=== PATIENT | male | born 1935 ===

== ENCOUNTER 2016-10-25 11:43 | Observation (INO) ==
[2016-10-25 12:23] LABS: Basophils % 0.6 % (0.0-0.8); Eosinophils # 0.2 10*3/uL (0.0-0.87); Eosinophils % 3.3 % (0.00-10.9); Hematocrit 46.2 VOL% (42.0-52.0); Hemoglobin 16.3 GM/DL (14.0-18.0); Immature Granulocytes % 0.3 %; Immature Granulocytes Absolute 0.02 #; Lymphocytes # 1.3 10*3/uL (1.4-4.0); Lymphocytes % 19.4 % (21.2-54.2); Mean Corpuscular HGB Conc 35.3 GM/DL (32-36); Mean Corpuscular Hemoglobin 30 PG (27-34); Mean Corpuscular Volume 86.2 FL (87-102); Mean Platelet Volume 11.4 FL (9.6-12.0); Monocytes # 0.7 10*3/uL (0.11-0.8); Monocytes % 10.4 % (1.7-12.7); Neutrophils # 4.4 10*3/uL (1.4-7.4); Platelet Count 136 T/CUMM (130-400); Red Blood Count 5.36 MC/CUMM (3.8-5.5); Red Cell Distribution Width 13.1 % (9.3-17.3); White Blood Count 6.7 T/CUMM (4-12)
--- NOTE | 2016-10-25 12:25 | XRay Report ---
Chest, 2 views History atrial fibrillation The heart is normal in size Vague symmetric nipple shadows present. No congestive failure or confluent infiltrate is seen. Impression: No acute pathology seen PROCEDURE INTERPRETED AT [facility] DEPARTMENT OF RADIOLOGY Final Report Signed by: Dr. Jennifer Woody
[2016-10-25 12:27] LABS: PT Patient Result 10.7 SECS; Partial Thromboplastin Time 27.9 SECS (0-40)
--- NOTE | 2016-10-25 12:36 | Emergency Department Note ---
Jane Mario Mantricia, am scribing for, and in the presence of, Quincy De La Rosa MD 12:16. Estrella Mario James D, MD, personally performed the services described in this documentation, ascribed by Camilla Lara in my presence, and it is both accurate and complete . Arrival - Arrival Chief Complaint: Arrhythmia/Palpitations Stated Complaint: heart.. afib ED Nursing Triage Note: sent from Dr Loza office with heart racing - pt states that he has been seen in the past for elevated heart rate - pt denies chest pain Mode of Arrival: Ambulatory Limitations: No Limitations Source: Patient Time Seen by Provider: 10/25/16 12:00 - History of Present Illness HPI Narrative: Pt is a 80 y/o white male arriving to ED with c/o heart palpitations that onset 4 days ago. Pt was sent here from Dr. Loza for further evaluation. He states that he was told to come by EMS so he thought that he would be seeing a make up editor. Pt states that his heart beat is usually slow. At time of exam, pt 's heart rate is 94. He was prescribed Lisinopril by Dr. Gan but has not been able to follow-up with him because he has retired. He denies any blood thinners or OTC medications. Pt does not have a PMHx of thyroid problems and he his is not having any chest pain at time of exam. No other complaints were reported to ED. Onset (ago): hour(s) Consistency: constant Severity: mild Allergies/Adverse Reactions: Allergies Allergy/AdvReac Type Severity Reaction Status Date / Time No Known Allergies Allergy Verified 10/25/16 12:00 Home Medications: Home Medications Medication Instructions Recorded Confirmed Type Lisinopril 20 mg PO DAILY 10/25/16 10/25/16 History Tamsulosin [Flomax] 0.4 mg PO DAILY 10/25/16 10/25/16 History amLODIPine [Norvasc] 5 mg PO DAILY 10/25/16 10/25/16 History Review of System - Review of System 12 point system: reviewed and no additional remarkable complaints except as stated - Review of System Constitutional: Absent: chills, diaphoresis, fever Respiratory: Absent: cough Cardiovascular: Present: palpitations. Absent: chest pain, dyspnea on exertion Gastrointestinal: Absent: abdominal pain, nausea, vomiting Musculoskeletal: Absent: arm pain, back pain, leg pain, neck pain Medical,Surgical,& Family Hx - Medical History Cardio: History of: Hypertension, Cardiovascular Problems (? irregular heart rate) - Social History Smoking Status: Never smoker Frequency of Alcohol Use: None Type of Drug Use: None Exam Physical Examination: ADULT: GENERAL: This is a well-nourished, well-developed white male in no apparent distress. VITAL SIGNS: Reviewed HEENT: Head is normocephalic and atraumatic. Pupils are equally round and reactive to light. Extraocular movement are intact. Oropharynx is benign with moist mucous membranes. NECK: Neck is soft and supple without tenderness. There are no masses. There is no lymphadenopathy. LUNGS: Lungs are clear to auscultation bilaterally. Chest rises symmetrically. There is no chest wall tenderness. CV: Heart is irregularly irregular without murmurs, rubs, or gallops. ABDOMEN: Abdomen is soft, non-tender to palpation. There are no abnormal masses palpated. There is no organomegaly. Bowel sounds are present and active. SKIN: Skin is warm and dry. No rash. EXTREMITIES: Patient has full range of motion without tenderness. There is no pedal edema. NEUROLOGIC: Awake, alert, and oriented x4. Cranial nerves II through XII are grossly intact. There are no motorsensory deficits. PSYCHIATRIC: Normal affect. Normal mood. Vital Signs: Vital Signs Temperature 98.1 F 10/25/16 11:59 Pulse Rate 91 H 10/25/16 12:12 Respiratory Rate 17 10/25/16 12:12 Blood Pressure 133/100 10/25/16 12:12 O2 Sat by Pulse Oximetry 98 10/25/16 12:12 Course Course Narrative: CHADS2 score is 2 out of 6. - Consultations Consultation #1: Discussed with Dr. Pulido. He will see the patient in the emergency department. Results - Labs Lab Results: I have reviewed the patients labs - EKG EKG results: interpreted by MAURICED - Impressions EKG: Atrial fib with rate of 91, left axis deviation, normal ST-T waves. Disposition Clinical Impression: Atrial fibrillation, Essential hypertension Case discussed with: patient, patient's family Condition: Stable Time of Disposition: 12:24
[2016-10-25 12:50] LABS: Albumin 3.6 G/DL (3.4-5.0); Bilirubin,Total 1.8 MG/DL (0.2-1.0); Calcium 9.6 MG/DL (8.5-10.1); Osmolality,Calculated 281.4 MOS/KG (273-304); Potassium 3.9 MMOL/L (3.5-5.1); Thyroid Stimulating Hormone 1.51 uIU/ml (0.358-3.74)
[2016-10-25 12:51] LABS: Troponin I Only 0.071 NG/ML (0.00-0.045)
[2016-10-25] MEDS ORDERED: ASPIRIN 325 MG TABLET PO STA (12:59)
[2016-10-25] MEDS ORDERED: ENOXAPARIN 80 MG/0.8 ML SYRINGE SUBCUT STA (12:59)
[2016-10-25] MEDS ORDERED: ENOXAPARIN 80 MG/0.8 ML SYRINGE SUBCUT ONE (13:02)
[2016-10-25] MEDS ORDERED: ASPIRIN 325 MG TABLET ONE (13:02)
[2016-10-25 13:38] LABS: Risk Ratio 3.27; VLDL CHOLESTEROL 20.2 MG/DL
[2016-10-25] MEDS ORDERED: ACETAMINOPHEN 325 MG TABLET PO PRN (13:46)
[2016-10-25] MEDS ORDERED: MAGNESIUM SULF RIDER 4 GM in PREMIX 1 EACH IV PRN (13:46)
[2016-10-25] MEDS ORDERED: DOCUSATE SODIUM 100 MG CAPSULE PO PRN (13:46)
[2016-10-25] MEDS ORDERED: ZALEPLON 5 MG CAPSULE PO PRN (13:46)
[2016-10-25] MEDS ORDERED: MAGNESIUM SULF RIDER 2 GM in PREMIX 1 EACH IV PRN (13:46)
[2016-10-25] MEDS ORDERED: ONDANSETRON 4 MG/2 ML VIAL IV PRN (13:46)
[2016-10-25] MEDS ORDERED: POTASSIUM CHLORIDE 20 MEQ TABLET PO PRN (13:46)
--- NOTE | 2016-10-25 14:10 | Cardiology History & Physical ---
<Radha Sung E - Last Filed: 10/25/16 13:51> Assessment and Plan - Time spent with patient Time spent with patient: Greater than 30 minutes (1) Chest pain Status: Acute Assessment and plan: SEE PLAN OF CARE LISTED BELOW Current Visit: Yes (2) Thyroid enlargement Status: Acute Assessment and plan: SEE PLAN OF CARE LISTED BELOW Current Visit: Yes (3) Elevated troponin Status: Acute Assessment and plan: SEE PLAN OF CARE LISTED BELOW Current Visit: Yes (4) Elevated bilirubin Status: Acute Assessment and plan: SEE PLAN OF CARE LISTED BELOW Current Visit: Yes (5) Atrial fibrillation Status: Acute Assessment and plan: SEE PLAN OF CARE LISTED BELOW Current Visit: Yes (6) Essential hypertension Status: Acute Assessment and plan: SEE PLAN OF CARE LISTED BELOW Current Visit: Yes History of Present Illness Chief complaint: chest pain, atrial fib History of present illness: 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 VAZQUEZ Patient is being seen in the emergency department of [facility]. Mr. Gonsalez, 80WM, who was previously followed by Dr. Gan for SVT. Risk factors include: Age, hypertension. History of colon cancer 1990s, in remission. Patient presented to Dr. Loza's office today after experiencing palpitations and chest discomfort intermittently since Sunday evening. He was found to be in atrial fibrillation, transferred to our facility for further workup. Sunday evening, while staying at a friend's house, he was required to walk the stairs in a 3 level home. While traversing the second set of stairs, patient began to experience chest pounding, chest discomfort located in the left chest area without radiation. This lasted approximately 5-10 minutes and improved with rest. No nausea, vomiting or diaphoresis associated. Rates discomfort discomfort as a 7 on a scale of 1-10, currently chest pain-free. Patient is adamant it is not chest pain but there is "something in the left chest area" which has been occurring with exertion and now at rest. It was occurring upon arrival to the ED but not at present. It is not reproducible to palpation or movement. Normally, Mr. Gonsalez is a very active gentleman. He works outside aggressively but is found over the past 2-3 weeks he has had more fatigue than usual. No real shortness of breath but fatigue with exertion. Father had myocardial infarction and at age 76. Patient does acknowledge that he has felt his heart fluttering and/or "skipping beats" over the past 4 days as well. He was previously followed by Dr. Gan for SVT but has never been diagnosed with atrial fibrillation. He has never had a stroke. He reports his heart rate is usually in the high 50s and low 60s and was concerned when his heart rate was in the high 90s today with a systolic blood pressure of 90s. Troponin has returned 0.07, EKG reveals atrial fibrillation. He has been given Aspirin and 1 dose of full strength Lovenox, nitrates. Blood pressure will not allow for introduction of betablocker. He is agreeable for admission overnight to rule out and evaluate other cardiac conditions. Patient may need stress test versus cardiac catheterization depending on his evolution. We will continue to cycle his cardiac biomarkers, EKG. CHADVASC SCORE 4. He has no contraindication to taking blood thinner. Echocardiogram has been ordered. TSH pending. Of note, bilirubin is elevated. Will add lipase and amylase, hepatitis panel, PPI. I will further discuss with Dr. Vazquez and await additional recommendations. ASSESSMENT/PLAN: 1. CHEST PAIN -continue cycle cardiac biomarkers, EKG, PPI. 2. ATRIAL FIBRILLATION (NEW ONSET) - rate controlled. Patient will need anticoagulation at discharge. 3. HYPERTENSION -usually well controlled on Lisinopril and Amlodipine. Prior history of reported low heart rates therefore avoiding beta blockers at this time. 4. ELEVATED BILIRUBIN - hepatitis panel, amylase, lipase. May benefit from right upper quadrant ultrasound. 5. BILOBULAR ENLARGEMENT OF THYROID - US thyroid. 6. ELEVATED TROPONIN - cyclie CIEs, EKG Home Medications Medication Instructions Recorded Confirmed Type Lisinopril 20 mg PO DAILY 10/25/16 10/25/16 History Tamsulosin [Flomax] 0.4 mg PO DAILY 10/25/16 10/25/16 History amLODIPine [Norvasc] 5 mg PO DAILY 10/25/16 10/25/16 History Allergies Allergy/AdvReac Type Severity Reaction Status Date / Time No Known Allergies Allergy Verified 10/25/16 12:00 Review of systems: REVIEW OF SYSTEMS: - Constitutional Constitutional: Present: Fatigue. Absent: syncope, anorexia, night sweats - EENT Eyes: Absent: blurry vision, loss of vision, diplopia Ears: Absent: decreased hearing, ear pain, ear discharge - Cardiovascular Cardiovascular: Present: chest pain with exertion, palpitations. Denies dyspnea on exertion, edema, palpitations. Absent: chest pain with deep breath, claudication - Respiratory Respiratory: Denies KAPLAN, cough. Absent: wheezing, hemoptysis, change in phlegm color - Gastrointestinal Gastrointestinal: Denies constipation. Frequent diarrhea since having the majority of his colon removed in 1996. Denies abdominal pain, hematemesis, hematochezia, melena, change in bowel habits, nausea - Genitourinary Genitourinary: Absent: difficulty urinating, dysuria, urinary hesitancy, flank pain - Musculoskeletal Musculoskeletal: Present: back pain Absent: joint swelling, muscle cramps, muscle weakness - Neurological Neurological: Present: normal gait without frequent falls. Absent: dizziness, hemiparesis - Psychiatric Psychiatric: Absent: anxiety, depression, difficulty concentrating - Endocrine Endocrine: Absent: cold intolerance, heat intolerance, polyuria, polyphagia, polydipsia - Hematologic/Lymphatic Hematologic/Lymphatic: Present: easy bruising, easy bleeding. -Integumentary Integumentary: Absent: lesions, rashes, skin breakdown Medical,Surgical,& Family Hx - Medical History Cardio: History of: Hypertension, Cardiovascular Problems (SVT) Endocrine: No history of: Diabetes Mellitus (NIDDM) - Social History Smoking Status: Never smoker Have you smoked in the last 12 months: No Frequency of Alcohol Use: None Type of Drug Use: None Marital Status: Lives With:: Spouse Functional capacity: independent ambulation Cardiology Physical Exam - Constitutional Vitals: Vital Signs Temp Pulse Resp BP Pulse Ox 98.1 F 85 12 125/96 98 10/25/16 11:59 10/25/16 12:45 10/25/16 12:45 10/25/16 12:45 10/25/16 12:45 Intake and Output 10/24/16 10/25/16 10/25/16 23:59 07:59 15:59 Other: Weight 81.647 kg Patient Weight 10/25/16 23:59 Weight 81.647 kg Exam: General: [Appears well with no apparent distress.] [Pleasant and cooperative. ] [Appears comfortable.] HEENT: [PERRL, normocephalic, atraumatic. Mucous membranes moist. No jaundice noted. Conjunctiva moist and clear, sclerae anicteric] Neck: No JVD/HJR. Bilobar enlargement of thyroid. No carotid bruit appreciated Cardiac: [Irregularly irregular rhythm, controlled rate.] [No murmur rub or gallop.] Lungs: [Clear to auscultation without accessory muscle use to assist the respiratory pattern.] Not requiring oxygen Abdomen: Soft, bowel sounds normoactive. Nontender and nondistended. No abdominal bruit or thrill noted. No masses noted. Well-healed mid sternal scar with hernia Musculoskeletal: No fluid collection. Decreased range of motion is noted. Extremities: No clubbing, cyanosis noted. [ No edema noted.] Upper extremity pulses 2+. Lower extremity pulses 2+. Capillary refill less than 3 seconds. Skin: No unusual lesions or rashes. No skin breakdown appreciated. Neuro: Awake, alert and oriented 3. Moves all extremities well without hemiparesis or paralysis. No essential tremor is appreciated. Result/EKG - Labs CBC & BMP: 10/25/16 12:02 10/25/16 12:02 Lab Results: I have reviewed the past 24 hour labs Labs: Laboratory Results - last 24 hr 10/25/16 10/25/16 10/25/16 12:02 12:02 12:02 WBC 6.7 RBC 5.36 Hgb 16.3 Hct 46.2 MCV 86.2 L MCH 30 MCHC 35.3 RDW 13.1 Plt Count 136 MPV 11.4 Neut % (Auto) 66.0 Lymph % (Auto) 19.4 L Harlan % (Auto) 10.4 Eos % (Auto) 3.3 Baso % (Auto) 0.6 Neut # (Auto) 4.4 Lymph # (Auto) 1.3 L Harlan # (Auto) 0.7 Eos # (Auto) 0.2 Baso # (Auto) 0.0 Immature Gran % 0.3 Nucleated RBC % 0.0 Immature Gran # 0.02 Nucleated RBCs # 0.00 INR 1.0 PT Patient/Control Mix 10.7 Circ Anticoag PTT 27.9 Sodium Potassium Chloride Carbon Dioxide Anion Gap BUN Creatinine GFR Calculation BUN/Creatinine Ratio Glucose Calculated Osmolality Calcium Total Bilirubin AST ALT Alkaline Phosphatase Troponin I Total Protein Albumin Globulin Albumin/Globulin Ratio Triglycerides Cholesterol LDL Cholesterol VLDL Cholesterol HDL Cholesterol Heart Disease Risk Ratio Amylase Lipase Free T4 1.15 TSH 3rd Generation 10/25/16 10/25/1617 12:02 12:02 12:02 WBC RBC Hgb Hct MCV MCH MCHC RDW Plt Count MPV Neut % (Auto) Lymph % (Auto) Harlan % (Auto) Eos % (Auto) Baso % (Auto) Neut # (Auto) Lymph # (Auto) Harlan # (Auto) Eos # (Auto) Baso # (Auto) Immature Gran % Nucleated RBC % Immature Gran # Nucleated RBCs # INR PT Patient/Control Mix Circ Anticoag PTT Sodium 140 Potassium 3.9 Chloride 106 Carbon Dioxide 27 Anion Gap 10.9 BUN 22 H Creatinine 1.10 GFR Calculation 75 BUN/Creatinine Ratio 20.00 Glucose 97 Calculated Osmolality 281.4 Calcium 9.6 Total Bilirubin 1.80 H AST 25 ALT 34 Alkaline Phosphatase 74 Troponin I 0.071 H Total Protein 7.0 Albumin 3.6 Globulin 3.4 Albumin/Globulin Ratio 1.0 L Triglycerides 101 Cholesterol 147 LDL Cholesterol 90.0 VLDL Cholesterol 20.2 HDL Cholesterol 45 Heart Disease Risk Ratio 3.27 Amylase 71 Lipase 188.0 Free T4 TSH 3rd Generation 1.510 - Diagnostic Findings Procedure: Chest x-ray: report reviewed by ri - EKG EKG results: interpreted by ri EKG shows: atrial fibrillation <Stalin Vazquez - Last Filed: 10/25/16 15:57> History of Present Illness History of present illness: Mr. Gonsalez is a 80 year old male Cardiology Physical Exam - Constitutional Vitals: Vital Signs Temp Pulse Resp BP Pulse Ox 98.1 F 84 15 127/83 98 10/25/16 11:59 10/25/16 14:45 10/25/16 14:45 10/25/16 14:45 10/25/16 14:45 Intake and Output 10/24/16 10/25/16 10/25/16 23:59 07:59 15:59 Other: Weight 81.647 kg Patient Weight 10/25/16 23:59 Weight 81.647 kg Result/EKG - Labs CBC & BMP: 10/25/16 12:02 10/25/16 12:02 Labs: Laboratory Results - last 24 hr 10/25/16 10/25/16 10/25/16 12:02 12:02 12:02 WBC 6.7 RBC 5.36 Hgb 16.3 Hct 46.2 MCV 86.2 L MCH 30 MCHC 35.3 RDW 13.1 Plt Count 136 MPV 11.4 Neut % (Auto) 66.0 Lymph % (Auto) 19.4 L Harlan % (Auto) 10.4 Eos % (Auto) 3.3 Baso % (Auto) 0.6 Neut # (Auto) 4.4 Lymph # (Auto) 1.3 L Harlan # (Auto) 0.7 Eos # (Auto) 0.2 Baso # (Auto) 0.0 Immature Gran % 0.3 Nucleated RBC % 0.0 Immature Gran # 0.02 Nucleated RBCs # 0.00 INR 1.0 PT Patient/Control Mix 10.7 Circ Anticoag PTT 27.9 Sodium Potassium Chloride Carbon Dioxide Anion Gap BUN Creatinine GFR Calculation BUN/Creatinine Ratio Glucose Calculated Osmolality Calcium Total Bilirubin AST ALT Alkaline Phosphatase Troponin I Total Protein Albumin Globulin Albumin/Globulin Ratio Triglycerides Cholesterol LDL Cholesterol VLDL Cholesterol HDL Cholesterol Heart Disease Risk Ratio Amylase Lipase Free T4 1.15 TSH 3rd Generation Hepatitis A IgM Ab Hep Bs Antigen Hep B Core IgM Ab Hepatitis C Antibody 10/25/16 10/25/16 10/25/16 12:02 12:02 12:02 WBC RBC Hgb Hct MCV MCH MCHC RDW Plt Count MPV Neut % (Auto) Lymph % (Auto) Harlan % (Auto) Eos % (Auto) Baso % (Auto) Neut # (Auto) Lymph # (Auto) Harlan # (Auto) Eos # (Auto) Baso # (Auto) Immature Gran % Nucleated RBC % Immature Gran # Nucleated RBCs # INR PT Patient/Control Mix Circ Anticoag PTT Sodium 140 Potassium 3.9 Chloride 106 Carbon Dioxide 27 Anion Gap 10.9 BUN 22 H Creatinine 1.10 GFR Calculation 75 BUN/Creatinine Ratio 20.00 Glucose 97 Calculated Osmolality 281.4 Calcium 9.6 Total Bilirubin 1.80 H AST 25 ALT 34 Alkaline Phosphatase 74 Troponin I 0.071 H Total Protein 7.0 Albumin 3.6 Globulin 3.4 Albumin/Globulin Ratio 1.0 L Triglycerides Cholesterol LDL Cholesterol VLDL Cholesterol HDL Cholesterol Heart Disease Risk Ratio Amylase 71 Lipase 188.0 Free T4 TSH 3rd Generation 1.510 Hepatitis A IgM Ab Negative Hep Bs Antigen Negative Hep B Core IgM Ab Negative Hepatitis C Antibody Negative 10/25/16 12:02 WBC RBC Hgb Hct MCV MCH MCHC RDW Plt Count MPV Neut % (Auto) Lymph % (Auto) Harlan % (Auto) Eos % (Auto) Baso % (Auto) Neut # (Auto) Lymph # (Auto) Harlan # (Auto) Eos # (Auto) Baso # (Auto) Immature Gran % Nucleated RBC % Immature Gran # Nucleated RBCs # INR PT Patient/Control Mix Circ Anticoag PTT Sodium Potassium Chloride Carbon Dioxide Anion Gap BUN Creatinine GFR Calculation BUN/Creatinine Ratio Glucose Calculated Osmolality Calcium Total Bilirubin AST ALT Alkaline Phosphatase Troponin I Total Protein Albumin Globulin Albumin/Globulin Ratio Triglycerides 101 Cholesterol 147 LDL Cholesterol 90.0 VLDL Cholesterol 20.2 HDL Cholesterol 45 Heart Disease Risk Ratio 3.27 Amylase Lipase Free T4 TSH 3rd Generation Hepatitis A IgM Ab Hep Bs Antigen Hep B Core IgM Ab Hepatitis C Antibody
[2016-10-25 14:27] LABS: Hepatitis A Ab IgM Quant 0.21 Index; Hepatitis A Ab IgM Result Negative (Negative); Hepatitis B Core IgM Quant 0.17 Index; Hepatitis B Core IgM Result Negative (Negative); Hepatitis B Surface Ag Quant < 0.10 Index; Hepatitis B Surface Ag Result Negative (Negative); Hepatitis C Virus Ab Quant 0.09 Index; Hepatitis C Virus Ab Result Negative (Negative)
--- NOTE | 2016-10-25 15:44 | ECHO Report ---
Logan Gonsalez Exam Date: 10/25/2016 14:29 Referring Physician: Technologist: Paulette Dc RDCS Age: 80 Ht (in): 72 Wt (lb): 180 Gender: M Exam [facility]: [facility] Echo Indications: Chest pain, unspecified, Atrial fibrillation, Palpitations, Essential (primary) hypertension, Thyroid enlargement, Elevated troponin BP: 135 / 84 HR: 75 Rhythm: Atrial fibrillation Technical Quality: IMPRESSIONS Technically adequate study 1+ left atrial enlargement Normal LV systolic function without segmental wall motion normality; ejection fraction estimated to be 60% Trace to 1+ mitral and tricuspid regurgitation with RVSP 31 mmHg plus RAP Irregular rhythm noted consistent with atrial fibrillation MEASUREMENTS (Male / Female) Normal Values 2D ECHO LV Diastolic Diameter PLAX 5.2 cm 4.2 - 5.9 / 3.9 - 5.3 cm LV Systolic Diameter PLAX 3.4 cm LV Fractional Shortening PLAX 34.6 % IVS Diastolic Thickness 0.8 cm 0.6 - 1.0 / 0.6 - 0.9 cm LVPW Diastolic Thickness 0.8 cm 0.6 - 1.0 / 0.6 - 0.9 cm RV Internal Dim ED PLAX 3.1 cm Aortic Root Diameter 3.2 cm LA Systolic Diameter LX 4.1 cm 3.0 - 4.0 / 2.7 - 3.8 cm DOPPLER TR Peak Velocity 277.0 cm/s TR Peak Gradient 30.7 mmHg FINDINGS Left Ventricle Normal left ventricular cavity size. Normal left ventricular wall thickness. Left ventricular ejection fraction is estimated at 60 %. Right Ventricle The right ventricle is normal in size and function. Right Atrium The right atrium is normal in size. Left Atrium The left atrium is mildly enlarged. Mitral Valve Mildly thickened mitral valve. Trace mitral valve regurgitation. Aortic Valve Trileaflet aortic valve. Trace aortic valve regurgitation. Tricuspid Valve Morphologically normal tricuspid valve. Mild tricuspid valve regurgitation. Tricuspid regurgitation velocities suggest a PAP of 41 mmHg. Pulmonic Valve Morphologically normal pulmonic valve without significant stenosis. There is no pulmonic regurgitation. Pericardium Normal pericardium without effusion. Aorta Normal ascending aorta dimension. Stalin Pulido (Electronically Signed) Final Date: 25 October 2016 15:43
--- NOTE | 2016-10-25 15:51 | Ultrasound Report ---
US thyroid Indication: Bilobular enlargement. Comparison: None. Technique: Multiple longitudinal and transverse real-time sonographic images of the thyroid are obtained. Findings: The right lobe of the thyroid measures 4.9 x 1.1 x 1.5 cm. The left lobe of the thyroid measures 3.8 x 1.3 x 1.2 cm. The thyroid isthmus measures 0.44 cm in thickness. The thyroid gland is mildly heterogeneous. No discrete thyroid nodule demonstrated. IMPRESSION: Mildly heterogeneous nonenlarged thyroid gland without discrete nodule demonstrated. PROCEDURE INTERPRETED AT [facility] DEPARTMENT OF RADIOLOGY Final Report Signed by: Dr Jere Brower
[2016-10-25] MEDS: NITROGLYCERIN 2% OINT 1 INCH/GM PACK TOP SCH ×2 (16:58→17:47)
[2016-10-25] MEDS: SODIUM CHLORIDE 0.45% 1,000 ML IV SCH (16:59)
[2016-10-25 20:14] LABS: Apearance,Urine CLEAR (Clear); Bilirubin,Urine Negative (Negative); Blood, Urine Negative (Negative); Glucose,Urine (UA) Negative (Negative); Ketones,Urine Negative (Negative); Mucus,Urine Occasional /LPF (Occasional); Nitrite,Urine Negative (Negative); Protein,Urine Negative; RBC,Urine 1 /HPF (0-4); Urine Color Yellow (Yellow); Urine Specific Gravity 1.014 (1.001-1.035); Urine Urobilinogen < 2.0 EU/DL (0.2-1.0); WBC,Urine 3 /HPF (0-6)
[2016-10-25] MEDS: CARVEDILOL 3.125 MG TABLET PO SCH (20:52)
[2016-10-25] MEDS: PANTOPRAZOLE 40 MG TABLET PO SCH (20:52)
[2016-10-26] MEDS ORDERED: ENOXAPARIN 80 MG/0.8 ML SYRINGE SUBCUT ONE (00:01)
[2016-10-26] MEDS: SODIUM CHLORIDE 0.45% 1,000 ML IV SCH ×3 (00:03→09:20)
[2016-10-26] MEDS: NITROGLYCERIN 2% OINT 1 INCH/GM PACK TOP SCH ×3 (00:03→12:02)
--- NOTE | 2016-10-26 07:18 | EKG Report ---
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
--- NOTE | 2016-10-26 07:49 | EKG Report ---
Stationary ECG Study [facility] Test Date: 10/25/2016 11:53 AM Pat Name: KACI ALBA Department: Room: 281 Gender: M Last Turner: : 1935 Requested by: Quincy Hallman Order Number: [id number] Reading MD: SUNITHA SELLERS Intervals [place] Rate: 91 P: 999 [place]: 0 QRS: -64 QRSD: 110 T: 56 QT: 339 QTc: 388 Interpretive Statements ATRIAL FIBRILLATION ABNORMAL LEFT AXIS DEVIATION CANNOT RULE OUT OLD ANTERIOR INFARCT Electronically Signed On 10-27-16 15:49:15 CDT by SUNITHA SELLERS [email or web address]
[2016-10-26 08:12] LABS: Basophils % 0.7 % (0.0-0.8); Eosinophils # 0.3 10*3/uL (0.0-0.87); Eosinophils % 6.1 % (0.00-10.9); Hematocrit 41.2 VOL% (42.0-52.0); Hemoglobin 14.4 GM/DL (14.0-18.0); Immature Granulocytes % 0.4 %; Immature Granulocytes Absolute 0.02 #; Lymphocytes % 18.4 % (21.2-54.2); Mean Corpuscular Hemoglobin 31 PG (27-34); Mean Corpuscular Volume 87.3 FL (87-102); Mean Platelet Volume 11.1 FL (9.6-12.0); Monocytes # 0.6 10*3/uL (0.11-0.8); Monocytes % 11.7 % (1.7-12.7); Neutrophils # 3.4 10*3/uL (1.4-7.4); Neutrophils % 62.7 % (38.7-73.9); Platelet Count 115 T/CUMM (130-400); Red Blood Count 4.72 MC/CUMM (3.8-5.5); Red Cell Distribution Width 12.9 % (9.3-17.3); White Blood Count 5.4 T/CUMM (4-12)
[2016-10-26 08:43] LABS: Calcium 8.7 MG/DL (8.5-10.1); Magnesium 1.9 MG/DL (1.8-2.4); Osmolality,Calculated 280.4 MOS/KG (273-304); Potassium 4.5 MMOL/L (3.5-5.1)
[2016-10-26 09:03] LABS: Troponin I Only 0.064 NG/ML (0.00-0.045)
--- NOTE | 2016-10-26 10:06 | Cardiology Progress Note ---
Assessment and Plan (1) Atrial fibrillation Status: Acute Assessment and plan: 1. Mr. Gonsalez is now asymptomatic and his atrial fibrillation has a controlled rate 2. Given his risk factors and episodes of fairly atypical chest discomfort will schedule exercise myocardial scan this morning 3. He is ruled out for myocardial infarction 4. If he does not need a heart catheterization based on his stress test results would start Eliquis 5 mg twice daily, and discharge later today. 5. Low-dose beta-jluis such as Toprol 25 mg daily or low-dose Coreg should be continued to control prevent RVR (he has not had any here) Current Visit: Yes (2) Chest pain Status: Acute Current Visit: Yes (3) Elevated bilirubin Status: Acute Current Visit: Yes (4) Essential hypertension Status: Acute Current Visit: Yes Cardiology - PN: Subj Interval history: Mr. Gonsalez has had no chest pain or shortness of breath during the night. He is anxious to have an evaluation to "find out what is going on". His follow-up cardiac panel was unremarkable. Exam (Progress Note) - Constitutional Vitals: Period Temp Pulse Resp BP Sys/Sosa Pulse Ox Last 24 Hr 97.7 F-98.1 F 72-108 12-20 97-148/58-100 94-100 General appearance: normal weight, no acute distress - Head Head exam: Present: normal inspection, normocephalic, atraumatic - Neck Neck exam: Present: normal inspection - Respiratory Respiratory exam: Present: clear to auscultation bilaterally. Absent: stridor, wheezes - Cardiovascular Cardiovascular exam: Present: irregular rhythm. Absent: diastolic murmur, rubs , tachycardia - GI/Abdominal GI/Abdominal exam: Present: soft. Absent: tenderness - Extremities Exam Extremities exam: Absent: edema - Neurological Exam Neurological exam: Present: alert, oriented X3 Result/EKG - Labs CBC & BMP: 10/26/16 08:00 10/26/16 08:00 Labs: Laboratory Results - last 24 hr 10/25/16 10/25/16 10/25/16 12:02 12:02 12:02 WBC 6.7 RBC 5.36 Hgb 16.3 Hct 46.2 MCV 86.2 L MCH 30 MCHC 35.3 RDW 13.1 Plt Count 136 MPV 11.4 Neut % (Auto) 66.0 Lymph % (Auto) 19.4 L [place] % (Auto) 10.4 Eos % (Auto) 3.3 Baso % (Auto) 0.6 Neut # (Auto) 4.4 Lymph # (Auto) 1.3 L [place] # (Auto) 0.7 Eos # (Auto) 0.2 Baso # (Auto) 0.0 Immature Gran % 0.3 Nucleated RBC % 0.0 Immature Gran # 0.02 Nucleated RBCs # 0.00 INR 1.0 PT Patient/Control Mix 10.7 Circ Anticoag PTT 27.9 Sodium Potassium Chloride Carbon Dioxide Anion Gap BUN Creatinine GFR Calculation BUN/Creatinine Ratio Glucose Calculated Osmolality Calcium Magnesium Total Bilirubin AST ALT Alkaline Phosphatase Total Creatine Kinase CK-MB (CK-2) Troponin I Total Protein Albumin Globulin Albumin/Globulin Ratio Triglycerides Cholesterol LDL Cholesterol VLDL Cholesterol HDL Cholesterol Heart Disease Risk Ratio Amylase Lipase Free T4 1.15 TSH 3rd Generation Urine Color Urine Appearance Urine pH Ur Specific [place] Urine Protein Urine Glucose (UA) Urine Ketones Urine Blood Urine Nitrate Urine Bilirubin Urine Urobilinogen Urine Leukocytes Urine RBC Urine WBC Urine Mucus Ur Culture Indicated? Hepatitis A IgM Ab Hep Bs Antigen Hep B Core IgM Ab Hepatitis C Antibody 10/25/16 10/25/16 10/25/16 12:02 12:02 12:02 WBC RBC Hgb Hct MCV MCH MCHC RDW Plt Count MPV Neut % (Auto) Lymph % (Auto) [place] % (Auto) Eos % (Auto) Baso % (Auto) Neut # (Auto) Lymph # (Auto) [place] # (Auto) Eos # (Auto) Baso # (Auto) Immature Gran % Nucleated RBC % Immature Gran # Nucleated RBCs # INR PT Patient/Control Mix Circ Anticoag PTT Sodium 140 Potassium 3.9 Chloride 106 Carbon Dioxide 27 Anion Gap 10.9 BUN 22 H Creatinine 1.10 GFR Calculation 75 BUN/Creatinine Ratio 20.00 Glucose 97 Calculated Osmolality 281.4 Calcium 9.6 Magnesium Total Bilirubin 1.80 H AST 25 ALT 34 Alkaline Phosphatase 74 Total Creatine Kinase CK-MB (CK-2) Troponin I 0.071 H Total Protein 7.0 Albumin 3.6 Globulin 3.4 Albumin/Globulin Ratio 1.0 L Triglycerides Cholesterol LDL Cholesterol VLDL Cholesterol HDL Cholesterol Heart Disease Risk Ratio Amylase 71 Lipase 188.0 Free T4 TSH 3rd Generation 1.510 Urine Color Urine Appearance Urine pH Ur Specific [place] Urine Protein Urine Glucose (UA) Urine Ketones Urine Blood Urine Nitrate Urine Bilirubin Urine Urobilinogen Urine Leukocytes Urine RBC Urine WBC Urine Mucus Ur Culture Indicated? Hepatitis A IgM Ab Negative Hep Bs Antigen Negative Hep B Core IgM Ab Negative Hepatitis C Antibody Negative 10/25/16 10/25/16 10/26/16 12:02 19:55 08:00 WBC RBC Hgb Hct MCV MCH MCHC RDW Plt Count MPV Neut % (Auto) Lymph % (Auto) [place] % (Auto) Eos % (Auto) Baso % (Auto) Neut # (Auto) Lymph # (Auto) [place] # (Auto) Eos # (Auto) Baso # (Auto) Immature Gran % Nucleated RBC % Immature Gran # Nucleated RBCs # INR PT Patient/Control Mix Circ Anticoag PTT Sodium 140 Potassium 4.5 Chloride 106 Carbon Dioxide 29 Anion Gap 9.5 BUN 20 H Creatinine 1.00 GFR Calculation 85 BUN/Creatinine Ratio 20.00 Glucose 82 Calculated Osmolality 280.4 Calcium 8.7 Magnesium 1.9 Total Bilirubin AST ALT Alkaline Phosphatase Total Creatine Kinase CK-MB (CK-2) Troponin I Total Protein Albumin Globulin Albumin/Globulin Ratio Triglycerides 101 Cholesterol 147 LDL Cholesterol 90.0 VLDL Cholesterol 20.2 HDL Cholesterol 45 Heart Disease Risk Ratio 3.27 Amylase Lipase Free T4 TSH 3rd Generation Urine Color Yellow Urine Appearance Clear Urine pH 6.0 Ur Specific [place] 1.014 Urine Protein Negative Urine Glucose (UA) Negative Urine Ketones Negative Urine Blood Negative Urine Nitrate Negative Urine Bilirubin Negative Urine Urobilinogen < 2.0 H Urine Leukocytes Negative Urine RBC 1 Urine WBC 3 Urine Mucus Occasional Ur Culture Indicated? Not indicated Hepatitis A IgM Ab Hep Bs Antigen Hep B Core IgM Ab Hepatitis C Antibody 10/26/16 10/26/16 08:00 08:01 WBC 5.4 RBC 4.72 Hgb 14.4 Hct 41.2 L MCV 87.3 MCH 31 MCHC 35.0 RDW 12.9 Plt Count 115 L MPV 11.1 Neut % (Auto) 62.7 Lymph % (Auto) 18.4 L [place] % (Auto) 11.7 Eos % (Auto) 6.1 Baso % (Auto) 0.7 Neut # (Auto) 3.4 Lymph # (Auto) 1.0 L [place] # (Auto) 0.6 Eos # (Auto) 0.3 Baso # (Auto) 0.0 Immature Gran % 0.4 Nucleated RBC % 0.0 Immature Gran # 0.02 Nucleated RBCs # 0.00 INR PT Patient/Control Mix Circ Anticoag PTT Sodium Potassium Chloride Carbon Dioxide Anion Gap BUN Creatinine GFR Calculation BUN/Creatinine Ratio Glucose Calculated Osmolality Calcium Magnesium Total Bilirubin AST ALT Alkaline Phosphatase Total Creatine Kinase 163 CK-MB (CK-2) 4.4 H Troponin I 0.064 H Total Protein Albumin Globulin Albumin/Globulin Ratio Triglycerides Cholesterol LDL Cholesterol VLDL Cholesterol HDL Cholesterol Heart Disease Risk Ratio Amylase Lipase Free T4 TSH 3rd Generation Urine Color Urine Appearance Urine pH Ur Specific [place] Urine Protein Urine Glucose (UA) Urine Ketones Urine Blood Urine Nitrate Urine Bilirubin Urine Urobilinogen Urine Leukocytes Urine RBC Urine WBC Urine Mucus Ur Culture Indicated? Hepatitis A IgM Ab Hep Bs Antigen Hep B Core IgM Ab Hepatitis C Antibody
[2016-10-26] MEDS: CARVEDILOL 3.125 MG TABLET PO SCH (11:36)
[2016-10-26] MEDS: PANTOPRAZOLE 40 MG TABLET PO SCH (11:36)
--- NOTE | 2016-10-26 12:07 | Event Note ---
Achieved target heart rate without difficulty. No complaints of chest pain, heaviness, tightness, shortness of breath. Remained in atrial fibrillation. No other arrhythmia noted. Blood pressure responded appropriately. No ST or T- wave changes noted. Now, patient will transition to nuclear medicine for completion of final scan. Dr. Pulido to read, interpreted and advise.
[2016-10-26 12:09] VITALS: BP 131/70
--- NOTE | 2016-10-26 15:27 | Nuclear Medicine Report ---
MYOCARDIAL PERFUSION SCAN DATE: 10/26/2016 BRIEF CLINICAL SUMMARY: Mr. Gonsalez is a 80-year-old with new onset atrial fibrillation with fatigu e, intermittent atypical chest pain. EXERCISE myocardial perfusion scan with gating: The patient was injected with 10 mCi of sestamibi be fore being sent for resting images to be obtained. He was then placed on a treadmill where he comple lin stage I on Juan Antonio protocol achieving target heart rate. At peak exercise, he was injected with 30 mCi of sestamibi and was later sent for stress images to be obtained. He had no chest discomfort or EKG changes during this study. The 3D orthogonal reconstruction view shows a moderate sized fixed inferior defect of moderate severi ty, which improved slightly on stress images. Otherwise, perfusion is normal. The gated stress images show normal LV systolic function with ejection fraction estimated to be 52%. Wall motion is normal by regional wall motion analysis with normal end-diastolic volume. IMPRESSION: 1. CLINICALLY AND ELECTROGRAPHICALLY NORMAL EXERCISE TREADMILL TEST. 2. MODERATE SIZED FIXED INFERIOR DEFECT TO MODERATE SEVERITY LIKELY RELATED TO DIAPHRAGMATIC ARTIFAC T (DIAPHRAGMATIC ARTIFACT IMAGE SEEN ON RAW DATA, THERE IS NO WALL MOTION ABNORMALITY TO SUGGEST SCAR RING). 3. NORMAL LEFT VENTRICULAR SYSTOLIC FUNCTION WITH EJECTION FRACTION ESTIMATED TO BE 52%. 4. NORMAL WALL MOTION BY REGIONAL WALL MOTION ANALYSIS WITH NORMAL END-DIASTOLIC VOLUME. RECOMMENDATION AND DISCUSSION: Mr. Gonsalez does not appear to have significant coronary ischemia. As noted above, the fixed inferior defect is more likely related to artifact to suggest scarring. Hi s normal left ventricular function was encouraging with regard to his cardiovascular prognosis. Procedure performed and interpreted at [facility] Department of Radiology.
--- NOTE | 2016-10-26 15:53 | Discharge Summary ---
Hospital Course - Hospital Course Hospital Course: [employer]: (NEW) DR. VAZQUEZ October 25, 2016: Mr. Gonsalez, 80WM, who was previously followed by Dr. Gan for SVT. Risk factors include: Age, hypertension. History of colon cancer 1990s, in remission. Patient presented to Dr. Loza's office today after experiencing palpitations and chest discomfort intermittently since Sunday evening. He was found to be in atrial fibrillation, transferred to our facility for further workup. Sunday evening, while staying at a friend's house, he was required to walk the stairs in a 3 level home. While traversing the second set of stairs, patient began to experience chest pounding, chest discomfort located in the left chest area without radiation. This lasted approximately 5-10 minutes and improved with rest. No nausea, vomiting or diaphoresis associated. Rates discomfort discomfort as a 7 on a scale of 1-10, currently chest pain-free. Patient is adamant it is not chest pain but there is "something in the left chest area" which has been occurring with exertion and now at rest. It was occurring upon arrival to the ED but not at present. It is not reproducible to palpation or movement. Normally, Mr. Gonsalez is a very active gentleman. He works outside aggressively but is found over the past 2-3 weeks he has had more fatigue than usual. No real shortness of breath but fatigue with exertion. Father had myocardial infarction and at age 76. Patient does acknowledge that he has felt his heart fluttering and/or "skipping beats" over the past 4 days as well. He was previously followed by Dr. Gan for SVT but has never been diagnosed with atrial fibrillation. He has never had a stroke. He reports his heart rate is usually in the high 50s and low 60s and was concerned when his heart rate was in the high 90s today with a systolic blood pressure of 90s. Troponin has returned 0.07, EKG reveals atrial fibrillation. He has been given Aspirin and 1 dose of full strength Lovenox, nitrates. Blood pressure will not allow for introduction of betablocker. He is agreeable for admission overnight to rule out and evaluate other cardiac conditions. Patient may need stress test versus cardiac catheterization depending on his evolution. We will continue to cycle his cardiac biomarkers, EKG. CHADVASC SCORE 4. He has no contraindication to taking blood thinner. Echocardiogram has been ordered. TSH pending. Of note, bilirubin is elevated. Will add lipase and amylase, hepatitis panel, PPI. I will further discuss with Dr. Vazquez and await additional recommendations. OCTOBER 26, 2016: Overnight, patient has had no more chest pain. He was started on low-dose beta blockade and he feels much better. Cardiac biomarkers remain flat. He did undergo Cardiolite stress test this morning which revealed no evidence of reversible ischemia, low risk study. Echocardiogram reveals no significant abnormality, EF 50%. Thyroid ultrasound reveals no significant abnormality. Patient will be discharged home on low-dose beta blockade and Eliquis for stroke prevention. Patient was counseled regarding his prior history of sinus bradycardia. He believes his heart rate was in the 40s and 50s in years past. Dr. Vazquez did discuss the possibility of an eventual pacemaker but hopes this will be avoided. The joint is seen and evaluated patient. Having felt is met maximal medical therapy, patient is being discharged home in stable condition. He will be given a 2-3 week follow-up with Dr. Vazquez. Patient had mildly elevated bilirubin and he will be given a follow-up appoint with his primary care provider for additional workup as needed. ASSESSMENT/PLAN: 1. CHEST PAIN - not NSTEMI. CIEs negative. . 2. ATRIAL FIBRILLATION (NEW ONSET) - rate controlled. Eliquis 5mg orally BID. atient will need anticoagulation at discharge. 3. HYPERTENSION - usually well controlled on Lisinopril and Amlodipine. Prior history of reported low heart rates therefore avoiding beta blockers at this time. 4. ELEVATED BILIRUBIN -mildly elevated. At discharge, he will be given an appointment to follow-up with Dr. Loza for further workup as needed. Hepatitis panel, amylase, lipase. May benefit from right upper quadrant ultrasound. 5. BILOBULAR ENLARGEMENT OF THYROID - US thyroid reveals no significant abnormality. 6. ELEVATED TROPONIN -flat, not in NSTEMI Discharge medications include the following: Eliquis 5 mg orally twice daily (new) Coreg 3.125 mg orally twice daily (new) Lisinopril 10 mg orally daily (decreased from 20 mg orally daily) Norvasc discontinued - Time spent with patient Time with patient DS: Greater than 30 minutes Diagnosis - Discharge Diagnosis (1) Chest pain Status: Resolved (2) Thyroid enlargement Status: Chronic (3) Elevated troponin Status: Resolved (4) Elevated bilirubin Status: Chronic (5) Atrial fibrillation Status: Chronic (6) Essential hypertension Status: Chronic Specialty Discharge - Follow Up or Referrals Follow up with: Mary Loza MD [Physician] - (1 MONTH. Routine F/U. Bilirubin mildly elevated) Quincy Vazquez MD [REFERRING DOCTOR/PRACTITIONER] - (2-3 weeks. EKG, BMP, Mg, CBC) Discharge Plan - Discharge Data Disposition: Disch To Home/Self Care Condition at Discharge: Stable Discharge Diet: advance to your usual diet Activity: resume usual activities as tolerated Hygiene: no restrictions Weight Bearing at Discharge: full weight bearing Driving: no restrictions Contact your physician if you experience:: fever over 101, Difficulty voiding, Redness or swelling, Nausea/Vomiting, Shortness of breath, Bleeding, pain uncontrolled by pain medications - Discharge Medications New Apixaban [Eliquis] 5 mg PO BID #60 tablet Lisinopril [Prinivil] 10 mg PO DAILY #30 tablet Carvedilol [Coreg] 3.125 mg PO BID #60 tablet Continue Tamsulosin [Flomax] 0.4 mg PO DAILY Discontinued Lisinopril 20 mg PO DAILY amLODIPine [Norvasc] 5 mg PO DAILY - Follow Up or Referral - Forms/Instructions Exam - Constitutional Vitals: Period Temp Pulse Resp BP Sys/Sosa Pulse Ox Last 24 Hr 97.7 F-98 F 78-108 14-20 97-148/58-88 94-99 Exam: General: [Appears well with no apparent distress.] [Pleasant and cooperative. ] [Appears comfortable.] HEENT: [PERRL, normocephalic, atraumatic. Mucous membranes moist. No jaundice noted. Conjunctiva moist and clear, sclerae anicteric] Neck: No JVD/HJR, no thyromegaly or lymphadenopathy noted. No carotid bruit appreciated Cardiac: [Regular rate and rhythm.] [No murmur rub or gallop.] Lungs: [Clear to auscultation without accessory muscle use to assist the respiratory pattern.] Not requiring oxygen Abdomen: Soft, bowel sounds normoactive. Nontender and nondistended. No abdominal bruit or thrill noted. No masses noted. Musculoskeletal: No fluid collection. Decreased range of motion is noted. Extremities: No clubbing, cyanosis noted. [ No edema noted.] Upper extremity pulses 2+. Lower extremity pulses 2+. Capillary refill less than 3 seconds. Skin: No unusual lesions or rashes. No skin breakdown appreciated. Neuro: Awake, alert and oriented 3. Moves all extremities well without hemiparesis or paralysis. No essential tremor is appreciated. Discharge Results Labs on day of discharge: Labs from last 24 hours 10/26/16 10/26/16 10/26/16 08:01 08:00 08:00 WBC 5.4 RBC 4.72 Hgb 14.4 Hct 41.2 L MCV 87.3 MCH 31 MCHC 35.0 RDW 12.9 Plt Count 115 L MPV 11.1 Neut % (Auto) 62.7 Lymph % (Auto) 18.4 L [place] % (Auto) 11.7 Eos % (Auto) 6.1 Baso % (Auto) 0.7 Neut # (Auto) 3.4 Lymph # (Auto) 1.0 L [place] # (Auto) 0.6 Eos # (Auto) 0.3 Baso # (Auto) 0.0 Immature Gran % 0.4 Nucleated RBC % 0.0 Immature Gran # 0.02 Nucleated RBCs # 0.00 Sodium 140 Potassium 4.5 Chloride 106 Carbon Dioxide 29 Anion Gap 9.5 BUN 20 H Creatinine 1.00 GFR Calculation 85 BUN/Creatinine Ratio 20.00 Glucose 82 Calculated Osmolality 280.4 Calcium 8.7 Magnesium 1.9 Total Creatine Kinase 163 CK-MB (CK-2) 4.4 H Troponin I 0.064 H Urine Color Urine Appearance Urine pH Ur Specific [place] Urine Protein Urine Glucose (UA) Urine Ketones Urine Blood Urine Nitrate Urine Bilirubin Urine Urobilinogen Urine Leukocytes Urine RBC Urine WBC Urine Mucus Ur Culture Indicated? 10/25/16 19:55 WBC RBC Hgb Hct MCV MCH MCHC RDW Plt Count MPV Neut % (Auto) Lymph % (Auto) [place] % (Auto) Eos % (Auto) Baso % (Auto) Neut # (Auto) Lymph # (Auto) [place] # (Auto) Eos # (Auto) Baso # (Auto) Immature Gran % Nucleated RBC % Immature Gran # Nucleated RBCs # Sodium Potassium Chloride Carbon Dioxide Anion Gap BUN Creatinine GFR Calculation BUN/Creatinine Ratio Glucose Calculated Osmolality Calcium Magnesium Total Creatine Kinase CK-MB (CK-2) Troponin I Urine Color Yellow Urine Appearance Clear Urine pH 6.0 Ur Specific [place] 1.014 Urine Protein Negative Urine Glucose (UA) Negative Urine Ketones Negative Urine Blood Negative Urine Nitrate Negative Urine Bilirubin Negative Urine Urobilinogen < 2.0 H Urine Leukocytes Negative Urine RBC 1 Urine WBC 3 Urine Mucus Occasional Ur Culture Indicated? Not indicated - Imaging and Cardiology Cardiology Procedure: report reviewed by me Procedure: Chest x-ray: report reviewed by me, Ultrasound: report reviewed by me (Thyroid ultrasound, echo) DS: Provider Date of admission: 10/25/16 13:46 Primary care physician: . No PCP Attending physician on admission: Stalin Abdalla Discharging clinician: Radha Sung NP Expected date of discharge: 10/26/16
[2016-10-26] MEDS ORDERED: APIXABAN 5 MG TABLET PO SCH (21:00)
[2016-10-27] MEDS ORDERED: LISINOPRIL 10 MG TABLET PO SCH (09:00)
== END 2016-10-26 17:13 | disposition home or self-care (01) ==
LOC: N.EDINP 11:43 → N.ED 11:43 → N.EDINP 15:32 → N.TELEN 16:15
PROVIDERS: ADMIT Internal Medicine Cardiovascular Disease; ATTEND Internal Medicine Cardiovascular Disease